=== PATIENT | female | born 1990 | race Caucasian/White ===

== ENCOUNTER 2017-08-28 14:31 | Inpatient (IN) | payer BC ==
[~2017-08-28] VITALS: Wt 52.2 kg
[2017-08-28] MEDS ORDERED: ONDANSETRON (ODT) 4 MG TAB ODT STA (15:27)
[2017-08-28] MEDS ORDERED: SOD CHLORIDE 0.9% 1,000 ML IV STA (15:27)
[2017-08-28 16:02] LABS: BASOPHIL # 0.1 10^3/ul (0.0-0.1); BASOPHILS % 0.9 % (0.0-2.0); EOSINOPHILS # 0.8 10^3/ul (0.0-0.5); EOSINOPHILS % 9.3 % (0.0-7.0); HEMATOCRIT 39.4 % (37.0-47.0); HEMOGLOBIN 13.4 g/dl (12.0-16.0); LYMPHOCYTES # 2.7 10^3/ul (0.8-2.9); LYMPHOCYTES % 31.6 % (15.0-51.0); MEAN CORPUSCULAR HEMOGLOBIN 30.8 pg (29.0-33.0); MEAN CORPUSCULAR VOLUME 90.6 fl (82.0-101.0); MEAN PLATELET VOLUME 12.1 fl (7.4-10.4); MONOCYTE # 0.7 10^3/ul (0.3-0.9); NEUTROPHIL # 4.2 10^3/ul (1.6-7.5); PLATELET COUNT 265 10^3/UL (140-415); RED BLOOD COUNT 4.35 10^6/ul (4.20-5.40); RED CELL DISTRIBUTION WIDTH 12.4 % (11.5-14.5); WHITE BLOOD COUNT 8.5 10^3/ul (4.8-10.8)
--- NOTE | 2017-08-28 16:18 | RADRPT ---
PROCEDURE: US Pelvis. CLINICAL INDICATION: Vaginal bleeding and left-sided pelvic pain TECHNIQUE: Multiple sonographic images of the pelvis were obtained utilizing a transabdominally an d transvaginally technique. The images were reviewed on a PACS workstation. COMPARISON: CT 09/09/2013 FINDINGS: The uterus is visualized and measures 7.9 x 3.1 x 4.9 cm. The endometrial echo complex is within nor mal limits and measures 5.2 mm. The right ovary has a normal echotexture and measures 3.3 x 2.2 x 3.1 cm . The left ovary has a nor mal echotexture and measures 5.0 x 3.3 x 3.6 cm. There is a 3.0 cm left ovarian cyst. No adnexal ma sses are noted. Complex free fluid is noted within the pelvis and adjacent to the right ovary, iram rning for hemorrhage. IMPRESSION: 1. The uterus and endometrial stripe is within normal limits measuring 5.2 mm. 2. 3.0 cm left ovarian cyst. No gross adnexal masses. 2. Complex appearing free fluid is noted within the pelvis and right adnexa, concerning for hemorrha ge. If there is history of , ectopic should be considered. Otherwise findings may represent a ruptured hemorrhagic cyst. RPTAT: AAPP Physician Belgica Date Time Electronically viewed and signed by Physician Belgica on 08/28/2017 16:18 MEGHANN/
[2017-08-28 16:39] LABS: ADD UMIC YES; UR ASCORBIC ACID NEGATIVE (NEGATIVE); UR BACTERIA FEW /HPF (NONE SEEN); UR BILIRUBIN (Dip) NEGATIVE (NEGATIVE); UR BLOOD (Dip) 3+ mg/dL (NEGATIVE); UR CLARITY CLOUDY (CLEAR); UR COLOR RED (YELLOW); UR GLUCOSE (Dip) 1+ mg/dL (NEGATIVE); UR KETONES (Dip) NEGATIVE (NEGATIVE); UR LEUKOCYTE ESTERASE (Dip) NEGATIVE Leu/ul (NEGATIVE); UR MUCUS FEW /HPF (NONE SEEN); UR NITRITE (Dip) NEGATIVE (NEGATIVE); UR RBC > 182 /HPF (0-5); UR SPECIFIC GRAVITY (Dip) 1.026 (1.003-1.030); UR SQUAMOUS EPITHELIAL CELL MODERATE /HPF (FEW); UR TOTAL PROTEIN (Dip) 2+ mg/dl (NEGATIVE); UR UROBILINOGEN (Dip) NEGATIVE (NEGATIVE)
[2017-08-28] MEDS ORDERED: ACETAMINOPHEN 325 MG TAB PO PRN (18:30)
[2017-08-28] MEDS ORDERED: ONDANSETRON 4 MG INJ IV PRN (18:30)
--- NOTE | 2017-08-28 18:42 | ERD ---
ER Documentation Chief Complaint Chief Complaint vag bleed with dizziness and low abd cramping for 21 days., unk HPI Patient is a 27-year-old female presents ED for concerns of vaginal bleeding 3 weeks. Patient states her last mental period was on 07-27-18. Patient states she started to have her. Again on 08-08-17. Patient states since that time she has had ongoing bleeding. Patient reports using 3-4 pads per day. Patient denies any blood clot passage. Patient does report feeling lightheaded. Patient does report bilateral pelvic pain however she states that her pain is worse on the left side. Patient denies any fevers, chills or vomiting. Patient does report feeling nauseous. Patient is sexually active and is unsure if she is . ROS All systems reviewed and are negative except as per history of present illness. Allergies Allergies: Coded Allergies: No Known Allergy (Unverified , 08/28/17) PMhx/Soc Medical and Surgical Hx: pt denies Medical Hx, pt denies Surgical Hx Hx Alcohol Use: No Hx Substance Use: No Hx Tobacco Use: No Smoking Status: Never smoker Physical Exam Vitals Vital Signs Date Time Temp Pulse Resp B/P Pulse Ox O2 Delivery O2 Flow Rate FiO2 08/29/17 11:22 98.0 57 14 100/67 99 Room Air 08/28/17 18:26 98.0 81 18 111/78 99 Room Air 08/28/17 14:35 98.0 65 20 116/64 98 Physical Exam GENERAL: Well-developed, well-nourished female. Appears in no acute distress. HEAD: Normocephalic, atraumatic. EYES: Pupils are equally reactive bilaterally. EOMs grossly intact. No conjunctival erythema. ENT: Moist mucous membranes. No uvula deviation. No kissing tonsils. NECK: Supple. No meningismus. Normal range of motion of the neck. LUNG: Clear to auscultation bilaterally. No rhonchi, wheezing, rales or coarse breath sounds. HEART: Regular rate and rhythm. No murmurs, rubs or gallops. ABDOMEN: No scars, ecchymosis or rashes noted. Soft, nondistended. Tender to palpation in bilateral lower pelvic regions, left-side greater than right side. Positive bowel sounds in all four quadrants. No rebound tenderness, no guarding. (-) McBurney's point tenderness. No CVA tenderness. BACK: No midline tenderness. EXTREMITIES: Equal pulses bilaterally. No peripheral clubbing, cyanosis or edema. No unilateral leg swelling. NEUROLOGIC: Alert and oriented. Moving all four extremities without any difficulty. Normal speech. Steady gait. SKIN: Normal color. Warm and dry. No rashes or lesions. Result Diagram: 08/29/17 1116 08/29/17 1116 Results 24 hrs Laboratory Tests Test 08/28/17 15:45 08/29/17 11:16 White Blood Count 8.510^3/ul 6.110^3/ul Red Blood Count 4.3510^6/ul 4.0210^6/ul Hemoglobin 13.4g/dl 12.7g/dl Hematocrit 39.4% 37.0% Mean Corpuscular Volume 90.6fl 92.0fl Mean Corpuscular Hemoglobin 30.8pg 31.6pg Mean Corpuscular Hemoglobin Concent 34.0g/dl 34.3g/dl Red Cell Distribution Width 12.4% 12.4% Platelet Count 25838^3/UL 31492^3/UL Mean Platelet Volume 12.1fl 11.9fl Neutrophils % 50.0% 29.8% Lymphocytes % 31.6% 43.2% Monocytes % 8.0% 8.7% Eosinophils % 9.3% 17.3% Basophils % 0.9% 0.8% Nucleated Red Blood Cells % 0.0/100WBC 0.0/100WBC Neutrophils # 4.210^3/ul 1.810^3/ul Lymphocytes # 2.710^3/ul 2.610^3/ul Monocytes # 0.710^3/ul 0.510^3/ul Eosinophils # 0.810^3/ul 1.110^3/ul Basophils # 0.110^3/ul 0.110^3/ul Nucleated Red Blood Cells # 0.010^3/ul 0.010^3/ul Urine Color RED Urine Clarity CLOUDY Urine pH 7.0 Urine Specific [place] 1.026 Urine Ketones NEGATIVEmg/dL Urine Nitrite NEGATIVEmg/dL Urine Bilirubin NEGATIVEmg/dL Urine Urobilinogen NEGATIVEmg/dL Urine Leukocyte Esterase NEGATIVELeu/ul Urine Microscopic RBC > 182/HPF Urine Microscopic WBC > 182/HPF Urine Squamous Epithelial Cells MODERATE/HPF Urine Bacteria FEW/HPF Urine Mucus FEW/HPF Urine Hemoglobin 3+mg/dL Urine Glucose 1+mg/dL Urine Total Protein 2+mg/dl Beta HCG, Quantitative 280.4mIU/ml Sodium Level 140mmol/L Potassium Level 3.7mmol/L Chloride Level 107mmol/L Carbon Dioxide Level 24mmol/L Anion Gap 13 Blood Urea Nitrogen 8mg/dl Creatinine 0.68mg/dl Glucose Level 81mg/dl Calcium Level 8.9mg/dl Current Medications Medications (Trade) Dose Ordered Sig/Nicolette Route PRN Reason Start Time Stop Time Status Last Admin Dose Admin Sodium Chloride (NS) 1,000 ml @ 1,000 mls/hr Q1H STAT IV 08/28/17 15:27 08/28/17 16:26 DC 08/28/17 16:12 Ondansetron HCl (Zofran Odt) 4 mg ONCE STAT ODT 08/28/17 15:27 08/28/17 15:30 DC 08/28/17 15:54 Ondansetron HCl (Zofran Inj) 4 mg BRIDGE ORDER PRN IV NAUSEA AND/OR VOMITING 08/28/17 18:30 08/29/17 18:29 Acetaminophen 650 mg 650 mg ER BRIDGE PRN PO MILD PAIN/FEVER 08/28/17 18:30 08/29/17 18:29 Sodium Chloride (NS) 1,000 ml @ 1,000 mls/hr Q1H ONCE IV 08/29/17 10:00 08/29/17 10:59 DC 08/29/17 10:29 Procedures/MDM ED COURSE: The patient was stable throughout ED course. I kept the patient and/or family informed of laboratory and diagnostic imaging results throughout the ED course. DIAGNOSTIC IMAGING: Read by radiologist. Patient: KAYLA LUBIN : 1990 Age: 27 Sex: F MR #: [id number] DOS: 08/28/17 1527 Ordering MD: JAIRO MAY PA-C Location: [facility] Room/Bed: PROCEDURE: US Pelvis. CLINICAL INDICATION: Vaginal bleeding and left-sided pelvic pain TECHNIQUE: Multiple sonographic images of the pelvis were obtained utilizing a transabdominally and transvaginally technique. The images were reviewed on a PACS workstation. COMPARISON: CT 09/09/2013 FINDINGS: The uterus is visualized and measures 7.9 x 3.1 x 4.9 cm. The endometrial echo complex is within normal limits and measures 5.2 mm. The right ovary has a normal echotexture and measures 3.3 x 2.2 x 3.1 cm . The left ovary has a normal echotexture and measures 5.0 x 3.3 x 3.6 cm. There is a 3.0 cm left ovarian cyst. No adnexal masses are noted. Complex free fluid is noted within the pelvis and adjacent to the right ovary, concerning for hemorrhage. IMPRESSION: 1. The uterus and endometrial stripe is within normal limits measuring 5.2 mm. 2. 3.0 cm left ovarian cyst. No gross adnexal masses. 2. Complex appearing free fluid is noted within the pelvis and right adnexa, concerning for hemorrhage. If there is history of , ectopic should be considered. Otherwise findings may represent a ruptured hemorrhagic cyst. RPTAT: AAPP Physician Belgica Date Time Electronically viewed and signed by Physician Belgica on 08/28/2017 16:18 JL/ CC: JAIRO MAY PA-C MEDICATIONS GIVEN: IV fluids, Zofran Patient tolerated medication well with no adverse reactions. Patient reported improvement in pain. MEDICAL DECISION MAKING: This is a 27-year-old female presents ED for concerns of vaginal bleeding 3 weeks. Patient reports bilateral pelvic pain however she states her pain is worse on the left side. Vital signs were reviewed. Patient was afebrile. Patient was hemodynamically stable. Urine test was obtained. Urine presents test was positive. Patient did not know she was prior to receiving this test. Blood work was obtained. Quantitative b-HCG was 280. Patient was B+. No indication for RhoGam at this time. CBC showed no evidence of systemic infection or severe anemia. Pelvic US showed 1. The uterus and endometrial stripe is within normal limits measuring 5.2 mm. 2. 3.0 cm left ovarian cyst. No gross adnexal masses. 2. Complex appearing free fluid is noted within the pelvis and right adnexa, concerning for hemorrhage. If there is history of , ectopic should be considered. Otherwise findings may represent a ruptured hemorrhagic cyst. Discussed findings with my supervising physician Dr. Wright who contacted the TELLER SUPERVISOR manufacturing plant controller Dr. Uriarte. Dr. Uriarte came down to ED2 and examined the patient. Dr. Uriarte stated that he would pass case down to oncoming OBGYN manufacturing plant controller. Patient's findings are most consistent with a ruptured ectopic and left ovarian cyst at this time. Patient will be admitted for ex laparatomy / removal of ruptured ectopic in the OR later tonight. She has been n.p.o. since 2 PM. Patient was hemodynamically stable throughout the ED course. Departure Diagnosis: Primary Impression: Ruptured ectopic Additional Impression: Left ovarian cyst Condition: Fair Patient Instructions: Ectopic JAIRO MAY PA-C Aug 28, 2017 18:42
--- NOTE | 2017-08-28 21:39 | QN ---
Documentation Comment I have seen and evaluated the patient along with the PA and/or WATER SYSTEMS ENGINEER provider. I agree with the evaluation and plan of care. Please see their documentation for full ER course and evaluation. Initial presentation: 27-year-old young woman presents with vaginal bleeding and bilateral pelvic cramping. She denies . No other associated symptoms. On exam: GENERAL: Well-developed, well-nourished, well-hydrated, mild discomfort, afebrile HEENT: Moist mucous membranes, pink conjunctiva, no cervical spine tenderness or step-off deformities, no goiter, no jaundice or icterus, extraocular movements intact without pain. No submandibular induration, and no pharyngeal erythema CARDIAC: Regular rate and rhythm, no murmurs rubs or gallops LUNGS: Clear bilaterally no wheezing crackles or stridor ABDOMEN: Soft nontender, no guarding, no rigidity, no rebound, no psoas sign no obturator sign. Normoactive bowel sounds SKIN: Warm and dry to touch, no abrasions, contusions, or hematomas, no lacerations, no ecchymosis, no target lesions, and without ulcers Assessment and plan: Ultrasound revealed right adnexal ectopic. Please refer to radiologist dictation for full report. Casting Supervisor montessori paraprofessional saw and evaluated the patient at the bedside and recommended admission. Accepting care team and consultations: I discussed the current laboratory data, diagnostic imaging and emergency care provided. Admitting team: Dr. Harman Admitting team indication: Insurance directed Consulting services: --- Diagnostic impression: Acute ectopic SHANNON GANN MD Aug 28, 2017 21:39
[2017-08-29] VITALS (24 sets, daily range): BP systolic 92–127; BP diastolic 54–82; PULSE 69–108; RESP 12–19; TEMP 98
--- NOTE | 2017-08-29 02:03 | HP ---
Date/Time of Note Date/Time of Note DATE: 08/29/17 TIME: 01:32 Assessment/Plan VTE Prophylaxis VTE Prophylaxis Intervention: ambulation, SCD's Lines/Catheters IV Catheter Type (from Nrs): Saline Lock Assessment/Plan Chief Complaint/Hosp Course pelvic pain with vaginal bleeding ectopic prenancy plan repeat u/s pelvis in am hcg quant cbc Problems: HPI/ROS Admit Date/Time Admit Date/Time 08/28/17 Hx of Present Illness 27 y.o A1(iab) presented ER with vaginal bleeding for 3weeks continuously with paiin on lLLQ which was intermittent and relieved by heating pad He menstral cycle has been regular monthly for 5days and her almp awas which was normal, came on expected day. patient stated that she has been sexually active without using any contraceptives for the last 2yrs when her IUD was removed because it got dislodged u/s today showed no IUP ahd left ovarian cyst 3cm with free fluid in cul de sac serum HCG 280 admit for observation with repeat lab in am hemodynamically stable at present keep NPO aafter M/N poss LSC in am ROS vaginal bleeding and LLQ pain no other symptom Constitutional: improved, no complaints Eyes: no complaints ENT: no complaints Respiratory: no complaints Cardiovascular: no complaints Gastrointestinal: pain Genitourinary: no complaints Musculoskeletal: no complaints Skin: no complaints Neurologic: no complaints Endocrine: no complaints Lymphatic: no complaints Psychological: nl mood/affect, no complaints PMH/Family/Social Past Medical History Medical History: no pertinent history Past Surgical History IUD removal Past Surgical Hx: no surgical history Family History Significant Family History: no pertinent family hx Social History Alcohol Use: none Smoking Status: Never smoker Drug Use: marijuana Exam/Review of Systems Vital Signs Vitals Vital Signs Date Time Temp Pulse Resp B/P Pulse Ox O2 Delivery O2 Flow Rate FiO2 08/28/17 18:26 98.0 81 18 111/78 99 Room Air Exam Constitutional: alert, oriented, well developed Head: atraumatic, normocephalic Eyes: EOMI, PERRL, nl conjunctiva, nl lids, nl sclera ENMT: nl external ears & nose, nl lips & teeth, nl nasal mucosa & septum Neck: non-tender, supple Cardiovascular: nl pulses, regular rate and rhythm Gastrointestinal: nl liver, spleen, non-tender, soft Genitourinary - Female: other (per u/s) Musculoskeletal: nl extremities to inspection Extremities: normal pulses Labs Result Diagram: 08/28/17 1545 NAYAN COX MD Aug 29, 2017 02:03
[2017-08-29] MEDS ORDERED: ROCURONIUM 50 MG INJ ONE (07:00)
[2017-08-29] MEDS ORDERED: SOD CHLORIDE 0.9% 1,000 ML IV ONE (10:00)
[2017-08-29 11:31] LABS: BASOPHIL # 0.1 10^3/ul (0.0-0.1); BASOPHILS % 0.8 % (0.0-2.0); EOSINOPHILS # 1.1 10^3/ul (0.0-0.5); EOSINOPHILS % 17.3 % (0.0-7.0); HEMOGLOBIN 12.7 g/dl (12.0-16.0); LYMPHOCYTES # 2.6 10^3/ul (0.8-2.9); LYMPHOCYTES % 43.2 % (15.0-51.0); MEAN CORPUSCULAR HEMOGLOBIN 31.6 pg (29.0-33.0); MEAN CORPUSCULAR HGB CONC 34.3 g/dl (32.0-37.0); MEAN PLATELET VOLUME 11.9 fl (7.4-10.4); MONOCYTE # 0.5 10^3/ul (0.3-0.9); MONOCYTES % 8.7 % (0.0-11.0); NEUTROPHIL # 1.8 10^3/ul (1.6-7.5); NEUTROPHILS % 29.8 % (39.0-77.0); PLATELET COUNT 231 10^3/UL (140-415); RED BLOOD COUNT 4.02 10^6/ul (4.20-5.40); RED CELL DISTRIBUTION WIDTH 12.4 % (11.5-14.5); WHITE BLOOD COUNT 6.1 10^3/ul (4.8-10.8)
[2017-08-29 11:49] LABS: CALCIUM 8.9 mg/dl (8.4-10.2); CREATININE 0.68 mg/dl (0.44-1.00); POTASSIUM 3.7 mmol/L (3.5-5.1)
[2017-08-29] MEDS ORDERED: PROPOFOL 20 ML ONE (12:26)
[2017-08-29] MEDS ORDERED: MIDAZOLAM 1 MG/ML 2 ML INJ ONE (12:26)
[2017-08-29] MEDS ORDERED: METOCLOPRAMIDE 10 MG INJ ONE (12:27)
[2017-08-29] MEDS ORDERED: ROPIVACAINE 0.5 % 30 ML VIAL ONE (12:28)
[2017-08-29 13:54] LABS: INR 1.09; PROTIME 14.2 Sec (11.9-14.9); PT RATIO 1.1
[2017-08-29 13:55] LABS: PARTIAL THROMBOPLASTIN TIME 32.2 Sec (25.0-35.0)
[2017-08-29] MEDS ORDERED: CEFAZOLIN 1 GM INJ ONE (14:14)
[2017-08-29] MEDS ORDERED: EPHEDrine SULFATE 50 MG/5 ML SYG ONE (14:14)
[2017-08-29] MEDS ORDERED: GLYCOPYRROLATE 0.4 MG INJ ONE (14:15)
[2017-08-29] MEDS ORDERED: ONDANSETRON 4 MG INJ ONE (14:15)
[2017-08-29] MEDS ORDERED: NEOSTIGMINE 3 MG/3 ML SYRINGE ONE (14:15)
[2017-08-29] MEDS ORDERED: KETOROLAC 30 MG INJ ONE (14:16)
[2017-08-29] MEDS ORDERED: HYDROmorphONE 2 MG/ML SYG ONE (14:38)
[2017-08-29] MEDS ORDERED: MEPERIDINE 25 MG INJ ONE (14:58)
[2017-08-29] MEDS ORDERED: FENTAnyl 50 MCG/ML VIAL ONE (14:58)
[2017-08-29] MEDS ORDERED: DIPHENHYDRAMINE 50 MG INJ ONE (14:59)
[2017-08-29] MEDS ORDERED: HYDROmorphONE (0.2 MG/ML) 10ML SYG IV PRN ×2 (15:30)
[2017-08-29] MEDS ORDERED: MEPERIDINE 25 MG INJ IV PRN (15:30)
[2017-08-29] MEDS ORDERED: DIPHENHYDRAMINE 50 MG INJ IV PRN (15:30)
[2017-08-29] MEDS ORDERED: HYDROmorphONE (0.2 MG/ML) 10ML SYG IV ONE (15:31)
--- NOTE | 2017-08-29 16:26 | OPR ---
Date/Time of Note Date/Time of Note DATE: 08/29/17 TIME: 15:47 Operative Report Free Text/Dictation August 29, 2017 Operative report This patient is a 27 years old 2 para 1 who came to emergency room with 3 weeks of vaginal spotting the ultrasound study suggested possible ectopic with intra-abdominal bleeding. She was placed in the operating room in lithotomy position. Vaginal and abdominal area were prepped and draped. A 5 mm Ha was Inserted First the pelvic examination was performed, the uterus did seem to be enlarged . A weighted speculum was placed inside the vagina and anterior lip of the cervix was picked up With a tenaculum . The uterus sounded about 7 cm ,it was slightly dilated and a HUMI catheter was inserted inside and was insufflated with water. At this time the gloves were changed and the procedure continued abdominally by making a small incision under the umbilicus. Through a 5 Millimeter incision a Veress needle were inserted in the peritoneal cavity and Abdominal cavity was inflated with about 2 and a half liters of gas. Then a 5 mm scope was inserted followed by insertion of a trocar. The abdominal cavity was fairly clean however there was evidence of a blood clot in the posterior cul-de-sac as well as adhesions mostly on the left side between the 2 ovaries, pelvis , large bowel and the uterus as well as to some adhesion on the right side. the adhesions under were lysed . After Lysis of adhesions were freed ,there was evidence of ectopic on the left tube . On the right side tube and ovary appeared to be normal. The ovary on the left side was also normal on the left side the tube was picked up and was grasped the uterine end of it with clamp and was was cauterized and cut. This procedures were continued and the entire portion of the tube as well as the ectopic were removed . At this time the irrigation and suctioning of blood clot of the pelvic cavity was performed. there were no bleeders. Then through a 12 mm opening of the abdomen on the right side a 12 mm Trocar was inserted inside the abdominal cavity On the specimen was pulled out from this incision site. At the end of these procedures the large incision on the fascia was Sutured with Vicryl 0 suture . Monocryl 0 suture were used for closure of the 2 other perforation in the abdominal cavity:( subumbilical and the suprapubic). . As I mentioned there was no much of a bleeding at this time, and incision were closed and she was transferred to the recovery room in a stable condition. Pictures were taken throughout the procedure a 1 gram of Ancef was given prior to start of the surgery she tolerated the procedure fairly well. Preoperative Diagnosis Left tubal Ectopic Postoperative Diagnosis The same Surgeon see signature line Volunteer Specialist Dr. Harman Anesthesia Type: general Estimated Blood Loss: 50 - 100 ml's Transfusion none Specimen Left tube with ectopic Grafts/Implants none Complications none Procedure Description See above ERASMO MONDRAGON MD Aug 29, 2017 16:23
[2017-08-29] MEDS ORDERED: IBUPROFEN 600 MG TAB PO PRN (19:00)
--- NOTE | 2017-08-29 20:24 | HP ---
DATE OF ADMISSION: 08/28/2017 HISTORY OF PRESENT ILLNESS: This is a 27-year-old ____ the emergency room with abdominal pain and v aginal bleeding. PAST MEDICAL HISTORY: The patient has history of . PAST SURGICAL HISTORY: Denies. ALLERGIES: NKDA. PHYSICAL EXAMINATION: VITAL SIGNS: Stable. GENERAL: Normal. ABDOMEN: She had left lower quadrant tenderness. Positive rebound. GENITAL: She had minimal clots in the vaginal vault. Ultrasound showed a complex free fluid in the pelvis and 3 cm left ovarian cyst. Hematocrit is 39.4 . Beta HCG is 280. ASSESSMENT AND PLAN: This is a 27-year-old with possible ruptured ectopic versus ruptured ovarian cyst and . The patient has been extensively discussed about the options including operative laparoscopy, possible salpingectomy versus expectant management as my call is over, the ca re is handed to ____ who will take over the patient's care. She will discuss her options again with her and patient was put on the schedule for possible laparoscopy and D and C and salpingectomy. Risks and benefits discussed with the patient, but also patient informed that since ____ will be her provider, she will decide about expectant management versus laparoscopy. Dictated By: CONNIE LEON/FRANCISCO Conf#: [id number] DID#: [id number]
[2017-08-30 00:02] VITALS: BP 90/55; RESP 18
[2017-08-30] MEDS: HYDROCODONE/APAP (5/325) TAB PO PRN ×2 (07:59→12:12)
[2017-08-30 08:30] VITALS: BP 94/55; RESP 18
== END 2017-08-30 13:30 | disposition home or self-care (01) | DRG 777 ==
LOC: FTE 14:31 → REC 18:18 → MS1 08-29 16:20 → FTE 08-29 16:20
PROC: 0UT64ZZ Resection of Left Fallopian Tube, Percutaneous Endoscopic Approach (ICD-10-PCS; 2017-08-29)
PROC: 10T24ZZ Resection of Products of Conception, Ectopic, Percutaneous Endoscopic Approach (ICD-10-PCS; principal; 2017-08-29 12:30)
DX: O00.102 Left tubal pregnancy without intrauterine pregnancy (principal)
CPT/HCPCS: 76830; 76856; 80048; 81001; 84702; 85025; 85610; 85730; 86900; 86901; 87086; 88302; J0690; J1170; J1200; J1885; J2175; J2250; J2405; J2710; J2765; J2795; J3010; J7030

== ENCOUNTER 2017-09-18 11:47 | Emergency (ER) | END 2017-09-18 14:30 | disposition home or self-care (01) ==

== ENCOUNTER 2017-11-23 10:33 | Emergency (ER) | END 2017-11-23 11:15 | disposition left against medical advice (07) ==